=== PATIENT | female | born 2000 | race Caucasian/White ===

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

== ENCOUNTER 2020-06-16 08:56 | Emergency (ER) | payer OTHER ==
[~2020-06-16] VITALS: Ht 170.2 cm; Wt 81.8 kg
[~2020-06-16 08:56] MED LIST: PANT-47 PO
[2020-06-16 09:06] VITALS: BP 116/73
[2020-06-16] MEDS ORDERED: dexamethasone sod phosphate 10mg/ml inj PO STA (09:21)
== END 2020-06-16 10:48 | disposition home or self-care (01) ==
LOC: ER 08:56
DX: J02.8 Acute pharyngitis due to other specified organisms (principal); J45.909 Unspecified asthma, uncomplicated; F12.10 Cannabis abuse, uncomplicated; Z79.899 Other long term (current) drug therapy
CPT/HCPCS: 87081; 87880; 99283; J1100

== ENCOUNTER 2020-06-17 12:56 | Emergency (ER) | payer OTHER ==
[~2020-06-17] VITALS: Ht 170.2 cm; Wt 82.0 kg
[2020-06-17 13:40] VITALS: BP 101/63
== END 2020-06-17 20:50 | disposition left against medical advice (07) ==
LOC: ER 12:57
DX: J02.9 Acute pharyngitis, unspecified (principal); B34.9 Viral infection, unspecified; Z53.21 Procedure and treatment not carried out due to patient leaving prior to being seen by health care provider

== ENCOUNTER 2021-01-30 15:45 | Emergency (ER) | payer OTHER ==
[~2021-01-30] VITALS: Ht 170.2 cm; Wt 87.2 kg
[2021-01-30 18:31] VITALS: BP 111/71
== END 2021-01-30 18:32 | disposition home or self-care (01) ==
LOC: ER 15:46
DX: R55 Syncope and collapse (principal); J45.909 Unspecified asthma, uncomplicated; F12.10 Cannabis abuse, uncomplicated
CPT/HCPCS: 93005; 99283

== ENCOUNTER 2022-01-27 06:32 | Emergency (ER) | payer OTHER, MEDICAID ==
[~2022-01-27] VITALS: Ht 167.6 cm; Wt 94.1 kg
[2022-01-27] MEDS ORDERED: albuterol 2.5 MG/3 ML nebule CONTNEB PRN (07:25)
[2022-01-27] MEDS ORDERED: methylPREDNISolone sod succ 125mg/2ml vial IV ONE (07:30)
[2022-01-27] MEDS ORDERED: magnesium 2GM in 50ml NS 50 ML IV ONE (07:30)
[2022-01-27] MEDS ORDERED: predniSONE 20 mg tablet PO ONE (07:35)
[2022-01-27] MEDS ORDERED: ALBU6.7H9 INH (08:10)
[2022-01-27] MEDS ORDERED: PRED20TA PO (08:49)
[2022-01-27 08:50] VITALS: BP 144/72
== END 2022-01-27 09:52 | disposition home or self-care (01) ==
LOC: ER 06:33
DX: O26.90 Pregnancy related conditions, unspecified, unspecified trimester (principal); J45.909 Unspecified asthma, uncomplicated; R06.02 Shortness of breath; R06.2 Wheezing; F12.90 Cannabis use, unspecified, uncomplicated; Z3A.00 Weeks of gestation of pregnancy not specified; Z79.899 Other long term (current) drug therapy
CPT/HCPCS: 94640; 99283; J7512; 94760